=== PATIENT | male | born 1990 | race Hispanic/Latino ===

== ENCOUNTER 2016-08-19 01:16 | Emergency (ER) | payer OTHER ==
[2016-08-19 01:45] VITALS: RESP 17
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
[2016-08-19 03:20] LABS: HEMATOCRIT 43.1 % (35.0-51.0); MEAN CELL VOLUME 87.4 fl (80.0-94.0); MEAN CORPUSCULAR HEMOGLOBIN 29.5 pg (27.0-31.0); MEAN CORPUSCULAR HGB CONC 33.8 g/dL (33.0-37.0); RED CELL DISTRIBUTION WIDTH 12.6 % (11.5-14.5); WHITE BLOOD COUNT 6.6 K/uL (4.8-10.8)
[2016-08-19 03:24] LABS: CHLORIDE 108 mmol/L (98-107)
[2016-08-19 03:25] LABS: RBC URINE 1 /hpf (0-3); SODIUM 148 mmol/l (132-148); URINE BILIRUBIN NEGATIVE (NEGATIVE); URINE BLOOD NEGATIVE (NEGATIVE); URINE COLOR STRAW (YELLOW); URINE GLUCOSE (UA) NEG (Normal); URINE KETONE NEGATIVE (NEGATIVE); URINE LEUKOCYTE ESTERASE NEG Leu/uL (Negative); URINE PROTEIN NEGATIVE (NEGATIVE); URINE UROBILINOGEN 0.2-1.0 mg/dL (0.2-1.0)
[2016-08-19 03:26] LABS: POTASSIUM 4.3 MMOL/L (3.6-5.0)
[2016-08-19 03:28] LABS: ALB/GLOB RATIO 1.5 (1.0-2.1); ALKALINE PHOSPHATASE 58 U/L (38-126); ALT/SGPT 22 U/L (21-72); AST/SGOT 28 U/L (17-59); BILIRUBIN,TOTAL 0.6 mg/dl (0.2-1.3); BLOOD UREA NITROGEN 15 mg/dl (9-20); CARBON DIOXIDE 26 mmol/L (22-30); GFR AFRICAN-AMERICAN > 60
[2016-08-19 03:29] LABS: ALCOHOL SERUM 123 mg/dl (0-10); CALCIUM 9.4 mg/dL (8.4-10.2); GLUCOSE,RANDOM 90 mg/dL (75-110)
[2016-08-19 05:16] VITALS: BP 127/64; PULSE 79; TEMP 97.9; O2SAT 98
== END 2016-08-19 05:16 | disposition home or self-care (01) ==
LOC: H.ER 01:16
DX: F10.129 Alcohol abuse with intoxication, unspecified (principal); Y90.5 Blood alcohol level of 100-119 mg/100 ml; F43.20 Adjustment disorder, unspecified